=== PATIENT | female | born 1980 | race Caucasian/White ===

== ENCOUNTER 2017-08-25 19:25 | Emergency (ER) | payer BC ==
[2017-08-25] MEDS ORDERED: SODIUM CHLORIDE 0.9% 1000ML 1,000 ML IV ONE (20:12)
[2017-08-25 20:21] LABS: BASOPHILS % (AUTO) 0.3 % (0.0-5.0); HEMATOCRIT 37.5 % (36-48); LYMPHOCYTES % (AUTO) 8.9 % (21.0-51.0); MEAN CORPUSCULAR HEMOGLOBIN 29.2 pg (27.0-33.0); MEAN CORPUSCULAR HGB CONC 35.1 g/dL (32.0-36.0); MEAN CORPUSCULAR VOLUME 83.1 fL (79-99); MONOCYTES % (AUTO) 12.2 % (3.0-13.0); NEUTROPHILS % (AUTO) 78.6 % (40.0-77.0); PLATELET COUNT (AUTO) 227 K/uL (130-400); RED BLOOD CELL COUNT(AUTO) 4.51 MIL/uL (4.00-5.50); RED CELL DISTRIBUTION WIDTH 12.9 % (11.0-15.5); WHITE BLOOD COUNT (AUTO) 9.6 K/uL (4.8-10.8)
[2017-08-25 20:22] LABS: BILIRUBIN,URINE Negative (NEGATIVE); COLOR,URINE Yellow (YELLOW); GLUCOSE, URINE (UA) Negative (NEGATIVE); KETONES,URINE >=80 mg/dL (NEGATIVE); LEUKOCYTE ESTERASE ,URINE Negative (NEGATIVE); NITRATE,URINE Negative (NEGATIVE); OCCULT BLOOD,URINE Negative (NEGATIVE); PROTEIN,URINE POS 2+ (NEGATIVE)
[2017-08-25 20:27] LABS: APPEARANCE,URINE CLOUDY (CLEAR)
[2017-08-25 20:28] LABS: HCG,QUAL RESULT NEGATIVE (NEGATIVE)
[2017-08-25 20:32] LABS: POTASSIUM 3.3 mmol/L (3.5-5.1)
[2017-08-25 20:40] LABS: BACTERIA,URINE Few /HPF (None Seen); MUCUS,URINE Moderate LPF (None Seen); RBC,URINE 0-1 /HPF (0-1); SQUAMOUS EPITHELIAL CELL,UR Few /HPF (0-2)
[2017-08-25] MEDS ORDERED: KETOROLAC TROMETHAMINE 30MG/ML ONE (20:52)
[2017-08-25] MEDS ORDERED: ACETAMINOPHEN ELIXIR 325 MG/10.15ML UDCUP ONE (20:56)
[2017-08-25] MEDS ORDERED: ISOVUE-370 50ML VIAL IV ONE (21:05)
[2017-08-25] MEDS ORDERED: CLINDAMYCIN 600 MG/D5% WATER 50 ML IV ONE (21:53)
[2017-08-26] MEDS ORDERED: KETOROLAC TROMETHAMINE 30MG/ML ONE (01:59)
== END 2017-08-26 02:15 | disposition short-term general hospital (02) ==
LOC: EDH 19:25
DX: K04.7 Periapical abscess without sinus (principal); Z88.1 Allergy status to other antibiotic agents
CPT/HCPCS: 36415; 70491; 80048; 81001; 81025; 85025; 96365; 96375; 96376; 99285; J1885 ×2; J3490; J7030; Q9967